=== PATIENT | male | born 1970 | race Hispanic/Latino ===

== ENCOUNTER 2018-05-28 12:16 | Inpatient (IN) | payer SELFPAY ==
[~2018-05-28] VITALS: Ht 170.2 cm; Wt 102.2 kg
[2018-05-28 14:04] LABS: BASOPHILS % (AUTO) 0.3 % (0.0-5.0); EOSINOPHILS % (AUTO) 0.4 % (0.0-8.0); LYMPHOCYTES % (AUTO) 7.1 % (21.0-51.0); MEAN CORPUSCULAR VOLUME 85.4 fL (79-99); MONOCYTES % (AUTO) 6.4 % (3.0-13.0); NEUTROPHILS % (AUTO) 85.8 % (40.0-77.0); PLATELET COUNT (AUTO) 228 K/uL (130-400); RED BLOOD CELL COUNT(AUTO) 4.92 MIL/uL (4.50-6.20); RED CELL DISTRIBUTION WIDTH 13.3 % (11.0-15.5); WHITE BLOOD COUNT (AUTO) 14.2 K/uL (4.8-10.8)
[2018-05-28] MEDS ORDERED: SODIUM CHLORIDE 0.9% 1000ML 1,000 ML IV ONE (14:04)
[2018-05-28] MEDS ORDERED: ONDANSETRON HCL 4 MG/2 ML VIAL ONE (14:37)
[2018-05-28] MEDS ORDERED: MORPHINE SULFATE 4 MG/1ML SYG ONE (14:38)
[2018-05-28 14:41] LABS: CREATININE 0.8 mg/dL (0.5-1.5); POTASSIUM 3.8 mmol/L (3.5-5.1)
[2018-05-28 14:45] LABS: ALBUMIN 3.1 g/dL (3.5-5.0); BILIRUBIN,DIRECT 0.6 mg/dL (0.0-0.3); BILIRUBIN,TOTAL 1.8 mg/dL (0.2-1.0); TOTAL PROTEIN, SERUM 8.3 g/dL (6.0-8.3)
[2018-05-28 14:53] LABS: CRP QUANTITATIVE 351.3 mg/L (0.00-9.0)
[2018-05-28 15:14] LABS: ERYTHROCYTE SEDIMENTATION RATE 93 MM/HR (0-15)
[2018-05-28 15:18] LABS: BILIRUBIN,URINE Negative (NEGATIVE); COLOR,URINE Dark Yellow (YELLOW); GLUCOSE, URINE (UA) Negative (NEGATIVE); KETONES,URINE Negative (NEGATIVE); LEUKOCYTE ESTERASE ,URINE Negative (NEGATIVE); NITRATE,URINE Negative (NEGATIVE); OCCULT BLOOD,URINE Negative (NEGATIVE); PROTEIN,URINE Negative (NEGATIVE); UROBILINOGEN,URINE >=8.0 mg/dL (0.2-1.0)
[2018-05-28 15:22] LABS: APPEARANCE,URINE CLEAR (CLEAR)
[2018-05-28] MEDS ORDERED: DOXYCYCLINE 100MG+NS 250ML 250 ML IV SCH (16:00)
[2018-05-28] MEDS ORDERED: ACETAMINOPHEN 325 MG TAB PO PRN ×2 (16:00)
[2018-05-28] MEDS ORDERED: VANCOMYCIN 1GM+NS 250ML 250 ML IV SCH (16:00)
[2018-05-28] MEDS ORDERED: HYDRALAZINE HCL 20 MG/ML VIAL IV PRN (16:00)
[2018-05-28] MEDS ORDERED: VANCOMYCIN PROTOCOL PER PHARMACY IV PRN ×2 (16:00→16:45)
[2018-05-28] MEDS ORDERED: VANCOMYCIN 1GM+NS 250ML 250 ML IV ONE (16:33)
[2018-05-28 17:50] VITALS: BP 143/85
--- NOTE | 2018-05-28 17:50 | NUR ---
Admit from ER with cellulitis to the right ankle, states it started this past Saturday. Addendum: 05/28/18 at 1828 by IKER EASTMAN RN RN Amended: Links added.
[2018-05-28] MEDS ORDERED: NAPR220C16 PO (17:56)
[2018-05-28] MEDS ORDERED: COMPOUND IV REFRIGERATED 1 EACH IVSOLN MISC PRN (19:00)
[2018-05-28 19:30] VITALS: BP 125/82
[2018-05-28] MEDS ORDERED: LORAZEPAM 2 MG/ML 1 ML VIAL IVP PRN (19:30)
[2018-05-28] MEDS: DOXYCYCLINE 100MG+NS 250ML 250 ML IV SCH (20:29)
[2018-05-28] MEDS: FAMOTIDINE/PF 20 MG/2 ML VIAL IV SCH (20:29)
[2018-05-28 23:30] VITALS: BP 111/69
[2018-05-29] MEDS ORDERED: MORPHINE SULFATE 2 MG/ML 1ML SYG ONE (02:10)
[2018-05-29] MEDS: ONDANSETRON HCL 4 MG/2 ML VIAL IV PRN ×2 (02:14→17:58)
[2018-05-29] MEDS ORDERED: MORPHINE SULFATE 2 MG/ML 1ML SYG IVP PRN (02:15)
[2018-05-29 04:00] VITALS: BP 127/80
[2018-05-29 04:30] LABS: HEMATOCRIT 38.3 % (42-54); MEAN CORPUSCULAR HEMOGLOBIN 29.1 pg (27.0-33.0); MEAN CORPUSCULAR HGB CONC 33.7 g/dL (32.0-36.0); MEAN CORPUSCULAR VOLUME 86.2 fL (79-99); PLATELET COUNT (AUTO) 224 K/uL (130-400); RED BLOOD CELL COUNT(AUTO) 4.45 MIL/uL (4.50-6.20); RED CELL DISTRIBUTION WIDTH 13.4 % (11.0-15.5); WHITE BLOOD COUNT (AUTO) 10.3 K/uL (4.8-10.8)
[2018-05-29 04:47] LABS: CREATININE 0.8 mg/dL (0.5-1.5); PHOSPHORUS 2.9 mg/dL (2.5-4.9); POTASSIUM 3.6 mmol/L (3.5-5.1)
[2018-05-29 05:06] LABS: CRP QUANTITATIVE 148.5 mg/L (0.00-9.0)
[2018-05-29 05:44] LABS: HEMOGLOBIN A1C < 3.6 % (4.0-6.0)
[2018-05-29 05:49] LABS: ERYTHROCYTE SEDIMENTATION RATE 95 MM/HR (0-15)
[2018-05-29] MEDS: VANCOMYCIN 1.5 GM in SODIUM CHLORIDE 0.9% 250 ML IV SCH ×2 (06:51→17:47)
[2018-05-29] MEDS: FAMOTIDINE/PF 20 MG/2 ML VIAL IV SCH ×2 (08:08→20:56)
[2018-05-29] MEDS: MULTIVITAMIN TABLET PO SCH (08:08)
[2018-05-29] MEDS: ENOXAPARIN SODIUM 40 MG/0.4 ML SYRINGE SQ SCH (08:10)
[2018-05-29] MEDS: FOLIC ACID 1 MG TABLET PO SCH (08:10)
[2018-05-29 08:24] VITALS: BP 101/59
[2018-05-29 08:28] VITALS: BP 116/72
[2018-05-29] MEDS: THIAMINE HCL 100 MG/ML 2ML VIAL IM SCH (09:00)
[2018-05-29] MEDS ORDERED: GADODIAMIDE 10 MMOL/20 ML ML IV ONE (10:04)
[2018-05-29] MEDS: DOXYCYCLINE 100MG+NS 250ML 250 ML IV SCH (10:49)
--- NOTE | 2018-05-29 12:18 | NUR ---
Pt. back from MRI to right foot, denies any c/o. Diet resumed. Addendum: 05/29/18 at 1248 by IKER EASTMAN RN RN Notified pt. Dr. Wu came but pt. he was having the MRI and that MD is aware of him and will review his chart, may not see him until tomorrow.. Notified Dr. Wu pt. was having an MRI done.
[2018-05-29 13:49] VITALS: BP 121/84
[2018-05-29] MEDS: CEFAZOLIN SODIUM 1 GM VIAL IVP SCH ×2 (15:06→22:51)
--- NOTE | 2018-05-29 15:52 | NUR ---
DCP CM met with pt discussed dc plans. Pt is independent prior to admission, lives at home with spouse and 1 minor child. Pt has crutches. Denies any equipments/services. Pt feels safe to go back home, spouse able to assist with transportation and needs as necessary. Pt is a self pay, C assisting, states currently seeing Dr Ana Chiu for MD follow up, given community resources. DC plan to home once stable. CM to cont to follow up. Addendum: 05/29/18 at 1600 by AYAKA ANGEL LVN CM Amended: Links added.
[2018-05-29 16:18] VITALS: BP 125/77
[2018-05-29 19:00] VITALS: BP 128/76
[2018-05-29] MEDS ORDERED: DIAZEPAM 5 MG/ML 2 ML SYG IV PRN (22:30)
[2018-05-29] MEDS ORDERED: KETOROLAC TROMETHAMINE 30MG/ML ONE (22:34)
[2018-05-30] VITALS (7 sets, daily range): BP systolic 118–137; BP diastolic 69–90
[2018-05-30 04:22] LABS: BASOPHILS % (AUTO) 0.6 % (0.0-5.0); EOSINOPHILS % (AUTO) 3.3 % (0.0-8.0); MEAN CORPUSCULAR HGB CONC 33.8 g/dL (32.0-36.0); MEAN CORPUSCULAR VOLUME 85.8 fL (79-99); NEUTROPHILS % (AUTO) 67.1 % (40.0-77.0); PLATELET COUNT (AUTO) 259 K/uL (130-400); RED BLOOD CELL COUNT(AUTO) 4.31 MIL/uL (4.50-6.20); RED CELL DISTRIBUTION WIDTH 13.2 % (11.0-15.5); WHITE BLOOD COUNT (AUTO) 8.3 K/uL (4.8-10.8)
[2018-05-30 04:36] LABS: CREATININE 0.8 mg/dL (0.5-1.5); POTASSIUM 3.7 mmol/L (3.5-5.1)
[2018-05-30] MEDS: CEFAZOLIN SODIUM 1 GM VIAL IVP SCH ×3 (06:08→21:16)
[2018-05-30] MEDS: VANCOMYCIN 1.5 GM in SODIUM CHLORIDE 0.9% 250 ML IV SCH ×2 (06:08→18:56)
[2018-05-30] MEDS: FAMOTIDINE/PF 20 MG/2 ML VIAL IV SCH ×2 (08:37→21:16)
[2018-05-30] MEDS: FOLIC ACID 1 MG TABLET PO SCH (08:37)
[2018-05-30] MEDS: MULTIVITAMIN TABLET PO SCH (08:37)
[2018-05-30] MEDS: ENOXAPARIN SODIUM 40 MG/0.4 ML SYRINGE SQ SCH (08:38)
[2018-05-30] MEDS: KETOROLAC TROMETHAMINE 30MG/ML IV PRN ×2 (10:07→23:16)
[2018-05-30] MEDS: THIAMINE HCL 100 MG/ML 2ML VIAL IM SCH (11:13)
[2018-05-31 04:00] VITALS: BP 116/61
[2018-05-31] MEDS: CEFAZOLIN SODIUM 1 GM VIAL IVP SCH ×3 (05:26→21:25)
[2018-05-31] MEDS: VANCOMYCIN 1.5 GM in SODIUM CHLORIDE 0.9% 250 ML IV SCH ×2 (05:26→18:19)
[2018-05-31 08:00] VITALS: BP 144/96
--- NOTE | 2018-05-31 08:00 | NUR ---
ASSESSMENT PT IS AWAKE, ALERT AND ORIENTED X3, VOICES NO COMPLAINTS OF PAIN, RIGHT LEG ELEVATED ON PILLOW PEDAL PULSES PRESENT, REDNESS PER PT STATES IS BETTER, PLAN OF CARE DISCUSSED, CALL PATEL WITHIN REACH.
[2018-05-31] MEDS: FAMOTIDINE/PF 20 MG/2 ML VIAL IV SCH ×2 (08:23→21:25)
[2018-05-31] MEDS: FOLIC ACID 1 MG TABLET PO SCH (08:27)
[2018-05-31] MEDS: MULTIVITAMIN TABLET PO SCH (08:27)
[2018-05-31] MEDS: ENOXAPARIN SODIUM 40 MG/0.4 ML SYRINGE SQ SCH (08:31)
--- NOTE | 2018-05-31 10:00 | NUR ---
ROSENDA MCCABEP HERE TO SEE PT, PLAN TO CONTINUE TREATMENT.
[2018-05-31] MEDS: THIAMINE HCL 100 MG/ML 2ML VIAL IM SCH (10:24)
[2018-05-31 12:00] VITALS: BP 121/84
[2018-05-31] MEDS ORDERED: SODIUM CHLORIDE 0.9% 50 ML IV ONE (12:20)
[2018-05-31] MEDS: KETOROLAC TROMETHAMINE 30MG/ML IV PRN ×2 (12:27→22:37)
[2018-05-31 16:00] VITALS: BP 120/74
[2018-05-31 20:00] VITALS: BP 136/93
[2018-05-31 23:56] VITALS: BP 137/78
[2018-06-01 04:00] VITALS: BP 109/78
[2018-06-01 05:13] LABS: BASOPHILS % (AUTO) 1.3 % (0.0-5.0); EOSINOPHILS % (AUTO) 3.7 % (0.0-8.0); HEMATOCRIT 37.5 % (42-54); LYMPHOCYTES % (AUTO) 18.3 % (21.0-51.0); MEAN CORPUSCULAR HEMOGLOBIN 29.2 pg (27.0-33.0); MEAN CORPUSCULAR HGB CONC 33.7 g/dL (32.0-36.0); MEAN CORPUSCULAR VOLUME 86.6 fL (79-99); MONOCYTES % (AUTO) 8.6 % (3.0-13.0); NEUTROPHILS % (AUTO) 68.1 % (40.0-77.0); PLATELET COUNT (AUTO) 332 K/uL (130-400); RED BLOOD CELL COUNT(AUTO) 4.33 MIL/uL (4.50-6.20); RED CELL DISTRIBUTION WIDTH 13.1 % (11.0-15.5); WHITE BLOOD COUNT (AUTO) 8.6 K/uL (4.8-10.8)
[2018-06-01 05:17] LABS: CREATININE 0.8 mg/dL (0.5-1.5); POTASSIUM 4.4 mmol/L (3.5-5.1)
[2018-06-01] MEDS: CEFAZOLIN SODIUM 1 GM VIAL IVP SCH ×2 (05:17→13:15)
[2018-06-01] MEDS: VANCOMYCIN 1.5 GM in SODIUM CHLORIDE 0.9% 250 ML IV SCH ×2 (05:18→16:52)
[2018-06-01 07:30] VITALS: BP 141/91
[2018-06-01] MEDS: MULTIVITAMIN TABLET PO SCH (08:32)
[2018-06-01] MEDS: FAMOTIDINE/PF 20 MG/2 ML VIAL IV SCH (08:33)
[2018-06-01] MEDS: ENOXAPARIN SODIUM 40 MG/0.4 ML SYRINGE SQ SCH (08:33)
[2018-06-01 11:00] VITALS: BP 143/85
[2018-06-01] MEDS: KETOROLAC TROMETHAMINE 30MG/ML IV PRN (18:34)
--- NOTE | 2018-06-01 18:37 | NUR ---
DISCHARGE PATIENT GIVEN DISCHARGE INSTRUCTIONS AND EDUCATION, INCLUDING SIDE EFFECTS ON NEW PRESCRIBED MEDICATIONS AND FOLLOW UP APPOINTMENT. PATIENT VERBALIZED UNDERSTANDING OF ALL EDUCATION GIVEN VIA TEACH BACK. IV DISCONTINUED, CATHETER INTACT. NO SIGNS OF DISTRESS NOTED UPON DISCHARGE. PATIENT LEFT VIA WHEELCHAIR WITH SPOUSE AT SIDE TO PRIVATE CAR , ALL BELONGINGS TAKEN WITH. Addendum: 06/01/18 at 1839 by SOBEIDA JOY RN RN Amended: Links added.
== END 2018-06-01 19:10 | disposition home or self-care (01) | DRG 872 ==
LOC: EDH 12:16 → EDHIP 12:17 → 4CH 17:29
PROVIDERS: ADMIT Internal Medicine; ATTEND Internal Medicine
DX: A41.9 Sepsis, unspecified organism (principal); L03.115 Cellulitis of right lower limb; M86.8X7 Other osteomyelitis, ankle and foot; M77.31 Calcaneal spur, right foot; M72.2 Plantar fascial fibromatosis; F10.20 Alcohol dependence, uncomplicated; Z82.5 Family history of asthma and other chronic lower respiratory diseases; Z82.49 Family history of ischemic heart disease and other diseases of the circulatory system
CPT/HCPCS: 36415; 73610; 73720; 80048; 80076; 80202; 81003; 82550; 83036; 83605; 83690; 83735; 84100; 84550; 85025; 85027; 85651; 86140; 87040; 93971; A4218; A9579; G0378; J0690; J1650; J1885; J2270; J2405; J3370; J3411; J3490; J7030

== ENCOUNTER 2023-07-06 06:50 | Emergency (ER) | payer OTHER ==
[~2023-07-06] VITALS: Ht 172.7 cm; Wt 106.6 kg
[~2023-07-06 06:50] MED LIST: NAPR220C62 PO
[2023-07-06 07:37] VITALS: O2SAT 0
[2023-07-06 07:57] LABS: ADD UA MICROSCOPIC YES; APPEARANCE,URINE CLEAR (CLEAR); BILIRUBIN,URINE NEGATIVE (NEGATIVE); COLOR,URINE LIGHT-YELLOW (YELLOW); GLUCOSE, URINE (UA) NEGATIVE (NEGATIVE); KETONES,URINE 20 mg/dL (NEGATIVE); LEUKOCYTE ESTERASE ,URINE NEGATIVE Leu/uL (NEGATIVE); NITRATE,URINE NEGATIVE (NEGATIVE); OCCULT BLOOD,URINE NEGATIVE (NEGATIVE); PROTEIN,URINE NEGATIVE (NEGATIVE); UROBILINOGEN,URINE 0.2 mg/dL (0.2-1.0)
[2023-07-06 08:00] LABS: HEMATOCRIT 44.9 % (42-54); MEAN CORPUSCULAR HEMOGLOBIN 29.2 pg (27.0-33.0); MEAN CORPUSCULAR VOLUME 83.6 fL (79-99); PLATELET COUNT (AUTO) 229 K/uL (130-400); RED BLOOD CELL COUNT(AUTO) 5.37 MIL/uL (4.50-6.20); RED CELL DISTRIBUTION WIDTH 12.5 % (11.0-15.5); WHITE BLOOD COUNT (AUTO) 10.5 K/uL (4.8-10.8)
[2023-07-06 08:21] LABS: ALBUMIN 3.9 g/dL (3.5-5.0); BILIRUBIN,TOTAL 1.5 mg/dL (0.2-1.0); CREATININE 0.7 mg/dL (0.5-1.3); POTASSIUM 3.8 mmol/L (3.5-5.1); TOTAL PROTEIN, SERUM 7.6 g/dL (6.0-8.3)
[2023-07-06 08:25] LABS: BACTERIA,URINE None Seen /HPF (None Seen); RBC,URINE 0-1 /HPF (0-1)
[2023-07-06] MEDS: 0.9%NACL 1000ML 1,000 ML IV ONE (09:10)
[2023-07-06] MEDS: IBUPROFEN 600 MG TABLET PO ONE (09:12)
[2023-07-06 09:39] LABS: AMPHET/METH SCREEN,URINE NEGATIVE (NEGATIVE); BARBITURATE SCREEN, URINE NEGATIVE (NEGATIVE); BENZODIAZEPINES SCREEN,URINE NEGATIVE (NEGATIVE); CANNABINOID SCREEN,URINE NEGATIVE (NEGATIVE); COCAINE SCREEN,URINE POSITIVE (NEGATIVE); OPIATE SCREEN,URINE NEGATIVE (NEGATIVE); PHENCYCLIDINE SCREEN,URINE NEGATIVE (NEGATIVE)
[2023-07-06 10:07] LABS: BAND NEUTROPHILS % (MANUAL) 5 % (0-2); EOSINOPHILS % (MANUAL) 3 % (1-6); LYMPHOCYTES % (MANUAL) 30 % (22-44); MAN.DIFF COMMENT-IMPRESSION MANUAL DIFFERENTIAL; MONOCYTES % (MANUAL) 4 % (2-9); PLATELET MORPHOLOGY COMMENT ADEQUATE; SEGMENTED NEUTROPHILS % 58 % (40-70); TOTAL CELLS COUNTED 100; WBC MORPHOLOGY CONSISTENT W/DIFF
[2023-07-06 10:22] VITALS: BP 126/95; PULSE 93; RESP 18
== END 2023-07-06 12:09 | disposition home or self-care (01) ==
LOC: EDH 06:50
DX: F10.10 Alcohol abuse, uncomplicated (principal); R51.9 Headache, unspecified; R42 Dizziness and giddiness; Z98.890 Other specified postprocedural states; Z79.899 Other long term (current) drug therapy
CPT/HCPCS: 99284; 96360; 70450; 96361; 80053; 80305; 85025; 36415; 81001; J7030